=== PATIENT | male | born 1950 | race Caucasian/White ===

== ENCOUNTER 2018-02-11 09:53 | Emergency (ER) | payer OTHER, MEDICARE ==
[~2018-02-11] VITALS: Ht 180.3 cm; Wt 108.9 kg
[~2018-02-11 09:53] MED LIST: ACET-422 PO; ASPI-482 PO; CELE200C PO; CEPH500T PO; COLE1TAB2 PO; DOCU-109 PO; FINA1TAB PO; GLUC1CAP48 PO; IBUP100O25 PO; LISI-130 PO; MAGN200T PO; MAGN400C PO; METH-38 PO; METH4TAB2 PO; MULT-208 PO; OXYC10TA46 PO; OXYC1TAB22 PO; PARO20TA3 PO; POTA500T5 PO; POTA99TA10 PO; PRAV40TA2 PO; PRAV80TA2 PO; TOPI100T8 PO; TOPI25TA7 PO; VITA150T PO; WARF-78 PO
[2018-02-11] MEDS ORDERED: IV NORMAL SALINE 1000ML BAG 1,000 ML IV SCH (10:17)
[2018-02-11] MEDS ORDERED: HYDROmorphone 2 MG/ML VIAL IV/SQ PRN (10:30)
--- NOTE | 2018-02-11 10:33 | PHYS DOC ---
Past Medical History Past Medical History: Other Additional Past Medical Histor: hyperlipidemia Past Surgical History: Hip Replacement, Knee Replacement, Other Additional Past Surgical Histo: hernia repair x2, several back surgeries Smoking: Quit Greater Than 1 Year Alcohol Use: Occasionally Drug Use: None Adult General Chief Complaint Chief Complaint: BACK PAIN OR INJURY TIM DUMONT Is a 67-year-old male who arrives in the emergency department via EMS, For what he reports is middle back pain, but he points to his right lower back as a source of his pain. He states that he fell about a week ago but was not having significant pain, although he was having some intermittent mild discomfort, immediately after that, but this morning after getting off the commode, he began experiencing acute right lower back pain, without radiation. He denies any numbness, weakness, or incontinence. He has not had any fevers or chills. He denies abdominal pain, but does have some generalized abdominal tenderness on exam, which seems to reproduce the patient's back pain, he states because it is causing him to tense up his abdominal and back muscles causing pain. Movement , especially rolling over and flexing his legs, seems to worsen his back pain. There are no alleviating factors to his symptoms. Other than his fall a week ago , he did not have any other traumatic injuries. He denies any chest pain shortness of breath, dizziness or lightheadedness, and has not had any urinary symptoms. Review of Systems Review of Systems Constitutional: Denies fever or chills [] Eyes: Denies change in visual acuity, redness, or eye pain [] HENT: Denies nasal congestion or sore throat [] Respiratory: Denies cough or shortness of breath [] Cardiovascular: The patient denies any shortness of breath, chest pain, palpitations, or orthopnea [] GI: Denies abdominal pain, nausea, vomiting, bloody stools or diarrhea [] : Denies dysuria or hematuria [] Musculoskeletal: Denies neck pain or joint pain [] Integument: Denies rash or skin lesions [] Neurologic: Denies headache, focal weakness or sensory changes [] Endocrine: Denies polyuria or polydipsia [] All other systems were reviewed and found to be within normal limits, except as documented in this note. Current Medications Current Medications Current Medications Medications (Trade) Dose Ordered Sig/Joshua Start Time Stop Time Status Last Admin Dose Admin Diazepam (Valium) 5 mg 1X ONCE 02/11/18 10:45 02/11/18 10:46 DC 02/11/18 10:54 5 MG Hydromorphone HCl (Dilaudid) 1 mg PRN Q15MIN PRN 02/11/18 10:30 02/12/18 10:29 02/11/18 10:48 1 MG Sodium Chloride 1,000 ml @ 100 mls/hr Q10H 02/11/18 10:17 02/11/18 20:16 02/11/18 10:45 100 MLS/HR Allergies Allergies Allergies Coded Allergies Type Severity Reaction Last Updated Verified No Known Drug Allergies 05/05/15 No Physical Exam Physical Exam PHYSICAL EXAM: CONSTITUTIONAL: Well developed, well nourished HEAD: normocephalic, atraumatic EENT: PERRL, EOMI. Conjunctivae normal color, sclerae non-icteric; moist mucous membranes. NECK: Supple, non-tender; no meningismus. LUNGS: Lungs CTA, breathing even and unlabored. Normal air movement. HEART: Regular rate and rhythm, no murmur CHEST: No deformity; there is mild tenderness to palpation at the most inferior aspect of the right lower/posterior costal margin, mostly in the right flank area, the remainder of the chest wall and ribs are non-tender ABDOMEN: The abdomen is soft, there is mild diffuse tenderness to palpation in the center abdomen, without focal tenderness, rebound, or guarding. The upper and lower abdomen are mostly soft and non-tender, no masses or bruits. EXTREM: Normal ROM; no deformity, no calf tenderness. Normal pulses palpable in all extremities. There is no pedal edema. SKIN: No rash; no diaphoresis NEURO: Alert; normal speech and cognition; CN's grossly intact; strength grossly intact without focal deficit. Patellar reflexes are 2+ bilaterally. There is no foot drop. There is no perineal anesthesia. BACK: No CVA TTP. There is tenderness to palpation of the right lower lumbar spine. Current Patient Data Vital Signs Vital Signs Date Time Temp Pulse Resp B/P (MAP) Pulse Ox O2 Delivery O2 Flow Rate FiO2 02/11/18 10:48 15 99 Room Air 02/11/18 10:00 134/69 (90) 99.0 Lab Values Laboratory Tests Test 02/11/18 10:53 02/11/18 12:00 White Blood Count 6.9 x10^3/uL (4.0-11.0) Red Blood Count 4.72 x10^6/uL (4.30-5.70) Hemoglobin 15.1 g/dL (13.0-17.5) Hematocrit 43.2 % (39.0-53.0) Mean Corpuscular Volume 92 fL (79-100) Mean Corpuscular Hemoglobin 32 pg (25-35) Mean Corpuscular Hemoglobin Concent 35 g/dL (31-37) Red Cell Distribution Width 13.2 % (11.5-14.5) Platelet Count 201 x10^3/uL (140-400) Neutrophils (%) (Auto) 80 % (31-73) H Lymphocytes (%) (Auto) 15 % (24-48) L Monocytes (%) (Auto) 4 % (0-9) Eosinophils (%) (Auto) 0 % (0-3) Basophils (%) (Auto) 0 % (0-3) Neutrophils # (Auto) 5.5 x10^3uL (1.8-7.7) Lymphocytes # (Auto) 1.0 x10^3/uL (1.0-4.8) Monocytes # (Auto) 0.3 x10^3/uL (0.0-1.1) Eosinophils # (Auto) 0.0 x10^3/uL (0.0-0.7) Basophils # (Auto) 0.0 x10^3/uL (0.0-0.2) Sodium Level 141 mmol/L (136-145) Potassium Level 3.9 mmol/L (3.5-5.1) Chloride Level 106 mmol/L (98-107) Carbon Dioxide Level 23 mmol/L (21-32) Anion Gap 12 (6-14) Blood Urea Nitrogen 13 mg/dL (8-26) Creatinine 0.9 mg/dL (0.7-1.3) Estimated GFR (Cockcroft-Gault) 84.2 BUN/Creatinine Ratio 14 (6-20) Glucose Level 114 mg/dL (70-99) H Calcium Level 9.1 mg/dL (8.5-10.1) Total Bilirubin 0.3 mg/dL (0.2-1.0) Aspartate Amino Transferase (AST) 35 U/L (15-37) Alanine Aminotransferase (ALT) 48 U/L (16-63) Alkaline Phosphatase 77 U/L (46-116) Total Protein 7.3 g/dL (6.4-8.2) Albumin 3.7 g/dL (3.4-5.0) Albumin/Globulin Ratio 1.0 (1.0-1.7) Lipase 333 U/L (73-393) Urine Collection Type Unknown Urine Color Yellow Urine Clarity Clear Urine pH 7.5 Urine Specific [place] 1.020 Urine Protein Negative mg/dL (NEG-TRACE) Urine Glucose (UA) Negative mg/dL (NEG) Urine Ketones (Stick) Negative mg/dL (NEG) Urine Blood Negative (NEG) Urine Nitrite Negative (NEG) Urine Bilirubin Negative (NEG) Urine Urobilinogen Dipstick 0.2 mg/dL (0.2 mg/dL) Urine Leukocyte Esterase Negative (NEG) Urine RBC 0 /HPF (0-2) Urine WBC 0 /HPF (0-4) Urine Squamous Epithelial Cells Few /LPF Urine Bacteria 0 /HPF (0-FEW) Laboratory Tests 02/11/18 10:53 Laboratory Tests 02/11/18 10:53 EKG EKG [] Radiology/Procedures Radiology/Procedures [PROCEDURE: CT ABDOMEN PELVIS WO CONTRAST CT of the abdomen and pelvis without contrast, 02/11/2018: HISTORY: Fall one week ago, back and right flank pain Noncontrast scans were obtained as requested. There are mild reticular opacities posteriorly in the lung bases suggesting scarring and/or atelectasis. No pleural fluid or pneumothorax is evident. Moderate coronary artery calcifications are present. The unopacified liver shows no abnormality. The gallbladder is unremarkable. No pancreatic abnormality is seen. The spleen is of normal size. There is a 2.5 cm cortical nodule arising from the lateral aspect of the right kidney. It is of higher density than the kidney demonstrate an internal CT number of 57 Hounsfield units. This may be a solid mass or complicated cyst. The unopacified kidneys are otherwise unremarkable. No adrenal abnormality is detected. There is moderate aortoiliac calcific plaquing. No abdominal or pelvic adenopathy is seen. Artifacts arising from a left hip prosthesis degrade image quality in the lower pelvis. The bowel loops are not dilated. No free fluid or free air is evident in the abdomen or pelvis. There has been a previous lower lumbar spinal fusion with instrumentation. Moderate multilevel degenerative changes are present in the spine. There is a nondisplaced fracture of the posterior aspect of the right 11th rib which appears recent. No other recent fracture is evident. IMPRESSION: 1. Recent fracture of the posterior aspect of the right 11th rib. 2. Medium density right renal nodule suggesting a complicated cyst versus a solid renal mass. Nonemergent sonographic evaluation is suggested. 3. No acute intra-abdominal or pelvic abnormality is detected. 4. Additional miscellaneous chronic findings as described above.] PROCEDURE: RIBS RIGHT Right RIBS, 3 views, 02/11/2018: HISTORY: Fall, pain There is a nondisplaced fracture of the posterior aspect of the right 11th rib, better demonstrated on the current CT study. No additional rib abnormality is detected. There is a moderate thoracolumbar scoliosis with moderate multilevel hypertrophic degenerative change. IMPRESSION: Right 11th rib fracture, better demonstrated on the current CT exam. Course & Med Decision Making Course & Med Decision Making Pertinent Labs and Imaging studies reviewed. (See chart for details) [12:40 PM:Patient remains stable. I discussed test results, the need for close follow-up, and return precautions.] Dragon Disclaimer Dragon Disclaimer This electronic medical record was generated, in whole or in part, using a voice recognition dictation system. Departure Departure Impression: Primary Impression: Rib fracture Disposition: 01 HOME, SELF-CARE Condition: STABLE Referrals: DANA OLIVER MD (PCP) Patient Instructions: Incentive Spirometer, Rib Fracture Scripts Lidocaine (Lidocaine) 1 Each Adh..patch 1 EACH TP DAILY PRN for PAIN, #10 PATCH Prov: JOSSE SWIFT MD 02/11/18 Oxycodone/Apap 5-325 (PERCOCET 5-325 MG TABLET ) 1 Each Tablet 1 TAB PO PRN Q6HRS PRN for PAIN, #20 TAB 0 Refills Prov: JOSSE SWIFT MD 02/11/18 JOSSE SWIFT MD Feb 11, 2018 10:33
[2018-02-11] MEDS ORDERED: diazePAM 5 MG TABLET PO ONE (10:45)
[2018-02-11 11:15] LABS: BASO % 0 % (0-3); EOS % 0 % (0-3); HEMATOCRIT 43.2 % (39.0-53.0); HEMOGLOBIN 15.1 g/dL (13.0-17.5); LYMPH % 15 % (24-48); MEAN CORPUSCULAR HEMOGLOBIN 32 pg (25-35); MEAN CORPUSCULAR HGB CONC 35 g/dL (31-37); MEAN CORPUSCULAR VOLUME 92 fL (79-100); MONO # 0.3 x10^3/uL (0.0-1.1); MONO % 4 % (0-9); NEUT # 5.5 x10^3uL (1.8-7.7); NEUT % 80 % (31-73); PLATELET COUNT 201 x10^3/uL (140-400); RED BLOOD COUNT 4.72 x10^6/uL (4.30-5.70); RED CELL DISTRIBUTION WIDTH 13.2 % (11.5-14.5); WHITE BLOOD COUNT 6.9 x10^3/uL (4.0-11.0)
[2018-02-11 11:18] LABS: CALCIUM 9.1 mg/dL (8.5-10.1); CREATININE 0.9 mg/dL (0.7-1.3); GFR 84.2; POTASSIUM 3.9 mmol/L (3.5-5.1)
[2018-02-11 11:20] LABS: ALBUMIN 3.7 g/dL (3.4-5.0); TOTAL BILIRUBIN 0.3 mg/dL (0.2-1.0); TOTAL PROTEIN 7.3 g/dL (6.4-8.2)
--- NOTE | 2018-02-11 11:58 | RAD ---
CT of the abdomen and pelvis without contrast, 02/11/2018: HISTORY: Fall one week ago, back and right flank pain Noncontrast scans were obtained as requested. There are mild reticular opacities posteriorly in the lung bases suggesting scarring and/or atelectasis. No pleural fluid or pneumothorax is evident. Moderate coronary artery calcifications are present. The unopacified liver shows no abnormality. The gallbladder is unremarkable. No pancreatic abnormality is seen. The spleen is of normal size. There is a 2.5 cm cortical nodule arising from the lateral aspect of the right kidney. It is of higher density than the kidney demonstrate an internal CT number of 57 Hounsfield units. This may be a solid mass or complicated cyst. The unopacified kidneys are otherwise unremarkable. No adrenal abnormality is detected. There is moderate aortoiliac calcific plaquing. No abdominal or pelvic adenopathy is seen. Artifacts arising from a left hip prosthesis degrade image quality in the lower pelvis. The bowel loops are not dilated. No free fluid or free air is evident in the abdomen or pelvis. There has been a previous lower lumbar spinal fusion with instrumentation. Moderate multilevel degenerative changes are present in the spine. There is a nondisplaced fracture of the posterior aspect of the right 11th rib which appears recent. No other recent fracture is evident. IMPRESSION: 1. Recent fracture of the posterior aspect of the right 11th rib. 2. Medium density right renal nodule suggesting a complicated cyst versus a solid renal mass. Nonemergent sonographic evaluation is suggested. 3. No acute intra-abdominal or pelvic abnormality is detected. 4. Additional miscellaneous chronic findings as described above. PQRS Compliance Statement: One or more of the following individualized dose reduction techniques were utilized for this examination: 1. Automated exposure control 2. Adjustment of the mA and/or kV according to patient size 3. Use of iterative reconstruction technique Electronically signed by: Issa Mathews MD (02/11/2018 11:55 AM) [facility]
--- NOTE | 2018-02-11 12:01 | RAD ---
Right RIBS, 3 views, 02/11/2018: HISTORY: Fall, pain There is a nondisplaced fracture of the posterior aspect of the right 11th rib, better demonstrated on the current CT study. No additional rib abnormality is detected. There is a moderate thoracolumbar scoliosis with moderate multilevel hypertrophic degenerative change. IMPRESSION: Right 11th rib fracture, better demonstrated on the current CT exam. Electronically signed by: Issa Mathews MD (02/11/2018 11:58 AM) [facility]
[2018-02-11 12:11] LABS: BILIRUBIN,URINE NEGATIVE (NEG); CLARITY,URINE CLEAR; COLOR,URINE YELLOW; NITRITE,URINE NEGATIVE (NEG); PH,URINE 7.5; PROTEIN,URINE NEGATIVE (NEG-TRACE); UROBILINOGEN,URINE 0.2 mg/dL (0.2 mg/dL)
[2018-02-11 12:31] LABS: BACTERIA,URINE 0 /HPF (0-FEW); RBC,URINE 0 /HPF (0-2); SQUAMOUS EPITHELIAL CELL,UR FEW /LPF; WBC,URINE 0 /HPF (0-4)
[2018-02-11] MEDS ORDERED: LIDO700A39 TP (12:41)
[2018-02-11] MEDS ORDERED: OXYC1TAB15 PO (12:41)
[2018-02-11 13:50] VITALS: BP 126/70
[2018-02-11] MEDS ORDERED: HYDROcodone/APAP 5/325MG 1 TAB TABLET ONE (13:55)
[2018-02-11] MEDS ORDERED: HYDROcodone/APAP 5/325MG 1 TAB TABLET PO ONE (14:00)
== END 2018-02-11 14:05 | disposition home or self-care (01) ==
LOC: ER 09:53
DX: S22.31XA Fracture of one rib, right side, initial encounter for closed fracture (principal); M54.5 Low back pain; R10.84 Generalized abdominal pain; E78.5 Hyperlipidemia, unspecified; Z96.649 Presence of unspecified artificial hip joint; Z87.891 Personal history of nicotine dependence; W18.30XA Fall on same level, unspecified, initial encounter; Y93.89 Activity, other specified; Y92.89 Other specified places as the place of occurrence of the external cause; Y99.8 Other external cause status
CPT/HCPCS: 36415; 71100; 74176; 80053; 81001; 83690; 85025; 96374; 99284; J1170; J7030

== ENCOUNTER → 2018-03-14 | Outpatient (CLI) | payer OTHER ==
[~2018-03-14] MED LIST changes: +LIDO700A39 TP; +OXYC1TAB15 PO
--- NOTE | 2018-03-14 17:00 | RAD ---
EXAM: Renal sonogram. HISTORY: Renal mass on CT. TECHNIQUE: Sonographic imaging of the kidneys and bladder was performed. COMPARISON: CT dated 02/11/2018. FINDINGS: The right kidney measures 11.8 cm [id number]. The left kidney measures 11.6 cm [id number]-[id number]. There is a 2.0 cm cyst within the lateral upper right kidney. No solid renal lesion is seen. There is no hydronephrosis. The bladder is unremarkable. The post void bladder volume is 42 cc. IMPRESSION: 2.0 cm right renal cyst. The hyperdensity of this lesion on the recent CT is likely due to internal hemorrhage. No convincing solid renal lesion is seen. Sonographic follow-up can be performed to confirm benignity. Electronically signed by: Arely Leach MD (03/14/2018 4:56 PM) [id number]
== END | disposition home or self-care (01) ==
LOC: US 16:05
PROVIDERS: ATTEND Family Medicine
DX: N28.1 Cyst of kidney, acquired (principal)
CPT/HCPCS: 76770

== ENCOUNTER → 2018-11-14 | Outpatient (CLI) | payer OTHER, MEDICARE ==
[~2018-11-14] MED LIST changes: +LIDO700A21 TP; -LIDO700A39 TP
[2018-11-14 07:31] LABS: BILIRUBIN,URINE NEGATIVE (NEG); CLARITY,URINE CLEAR; COLOR,URINE YELLOW; NITRITE,URINE NEGATIVE (NEG); PH,URINE 7.5; PROTEIN,URINE NEGATIVE (NEG-TRACE); UROBILINOGEN,URINE 0.2 mg/dL (0.2 mg/dL)
[2018-11-14 07:44] LABS: BACTERIA,URINE FEW /HPF (0-FEW); RBC,URINE 0 /HPF (0-2); SQUAMOUS EPITHELIAL CELL,UR OCC /LPF
[2018-11-14 08:00] LABS: ALBUMIN/GLOBULIN RATIO 1.1 (1.0-1.7); CALCIUM 8.9 mg/dL (8.5-10.1); GFR 74.3; TOTAL BILIRUBIN 0.8 mg/dL (0.2-1.0); TOTAL PROTEIN 7.8 g/dL (6.4-8.2)
[2018-11-14 08:01] LABS: CHOLESTEROL/HDL RATIO 4.5
[2018-11-15 01:07] LABS: HEMOGLOBIN A1C 5.5 % (4.8-5.6)
[2018-11-15 12:11] LABS: FECAL OB PT NEGATIVE (NEG)
== END | disposition home or self-care (01) ==
LOC: LAB 07:03
PROVIDERS: ATTEND Family Medicine
DX: Z12.11 Encounter for screening for malignant neoplasm of colon (principal); Z12.5 Encounter for screening for malignant neoplasm of prostate; R73.01 Impaired fasting glucose; E78.5 Hyperlipidemia, unspecified; N40.0 Benign prostatic hyperplasia without lower urinary tract symptoms; I10 Essential (primary) hypertension
CPT/HCPCS: 36415; 80053; 80061; 81001; 82274; 83036; 87086; G0103

== ENCOUNTER → 2019-01-02 | Outpatient (CLI) | payer OTHER, MEDICARE | END | disposition home or self-care (01) | LOC: LAB 07:18 | PROVIDERS: ATTEND Urology | DX: R97.20 Elevated prostate specific antigen [PSA] (principal) | CPT/HCPCS: 36415; G0103 ==

== ENCOUNTER → 2019-05-20 | Outpatient (CLI) | payer OTHER, MEDICARE ==
--- NOTE | 2019-05-20 16:57 | KCIC ---
RENAL COMPLETE BILATERAL History: Right renal lesion. Comparison: March 14, [address] February 11, 2018 Procedure: Transabdominal ultrasound images are obtained of the kidneys and bladder. Findings: Right kidney: measures 11.8 x 5.9 x 6.3 cm. No hydronephrosis. Right renal cyst measures 2.1 x 2.4 x 1.8 cm, not significant changed compared to prior. Left kidney: measures 12 x 5.6 x 5.5 cm. Normal cortical echotexture. Corticomedullary differentiation is preserved. No hydronephrosis. Urinary bladder: No urinary bladder wall thickening. IVC not well seen due to overlying bowel gas. IMPRESSION: 1. Unchanged right renal Bosniak 2 cyst. No follow-up imaging is recommended per consensus recommendations based on imaging criteria. Electronically signed by: Chet Amos DO (05/20/2019 4:54 PM) [id number]
== END | disposition home or self-care (01) ==
LOC: KCIC US 13:09
PROVIDERS: ATTEND Family Medicine
DX: N28.1 Cyst of kidney, acquired (principal)
CPT/HCPCS: 76770

== ENCOUNTER → 2019-07-11 | Outpatient (CLI) | payer OTHER, MEDICARE | END | disposition home or self-care (01) | LOC: LAB 08:48 | PROVIDERS: ATTEND Urology | DX: R97.20 Elevated prostate specific antigen [PSA] (principal) | CPT/HCPCS: 36415; 84153; G0103 ==

== ENCOUNTER → 2019-10-02 | Outpatient (CLI) | payer OTHER, MEDICARE ==
[~2019-10-02] MED LIST changes: -WARF-78 PO; +WARF5TAB2 PO
[2019-10-02 08:12] LABS: ALBUMIN 4.1 g/dL (3.4-5.0); ALBUMIN/GLOBULIN RATIO 1.1 (1.0-1.7); CALCIUM 8.9 mg/dL (8.5-10.1); CREATININE 1.1 mg/dL (0.7-1.3); GFR 66.6; POTASSIUM 3.8 mmol/L (3.5-5.1); TOTAL BILIRUBIN 0.4 mg/dL (0.2-1.0); TOTAL PROTEIN 7.9 g/dL (6.4-8.2)
[2019-10-02 08:13] LABS: CHOLESTEROL/HDL RATIO 4.1
== END | disposition home or self-care (01) ==
LOC: LAB 07:30
PROVIDERS: ATTEND Family Medicine
DX: R73.01 Impaired fasting glucose (principal); R97.20 Elevated prostate specific antigen [PSA]; I10 Essential (primary) hypertension
CPT/HCPCS: 36415; 80053; 80061; G0103

== ENCOUNTER → 2019-10-02 | Outpatient (CLI) | payer OTHER | END | disposition home or self-care (01) | LOC: LAB 12:41 | PROVIDERS: ATTEND Internal Medicine Pulmonary Disease | DX: Z20.828 Contact with and (suspected) exposure to other viral communicable diseases (principal) | CPT/HCPCS: U0003-CS ==

== ENCOUNTER → 2020-04-16 | Outpatient (CLI) | payer OTHER ==
[~2020-04-16] MED LIST changes: +ASPI325T11 PO; +DICY20TA3 PO; +GLUC-11 PO; +HYDR-2765 PO; +HYDR-2769 PO; +IBUP-1815 PO; -IBUP100O25 PO; +LORA10TA3 PO; +OXYC1TAB17 PO
--- NOTE | 2020-04-16 16:56 | RAD ---
NM THREE PHASE BONE SCAN Clinical Indication: Right knee pain. Total knee replacement 2014. Comparison: Right knee radiographs, 3 days ago. TECHNIQUE: Patient is injected with 25 mCi of technetium 99m MDP. Anterior and posterior angiographic phase images of the knees acquired. Then anterior immediate static images acquired. Delayed images o f the knees in multiple projections acquired. Findings: On angiographic phase images is there is hyperemia outlining the right knee joint. There is intense t racer uptake outlining the knee joint on the immediate static (blood pool) image. On delay images the re is abnormal increased tracer uptake of the distal femur and proximal tibia adjacent to the prosthe sis. There is increased tracer uptake of the patella. No abnormal uptake of the left knee is apprecia fei. IMPRESSION: The right knee demonstrates abnormal increased tracer uptake on all 3 phases suggesting loosening. Electronically signed by: Oneil Daniels MD (04/16/2020 4:54 PM) [id number]
== END ==
LOC: NM 07:59
PROVIDERS: ATTEND Orthopaedic Surgery
DX: M25.561 Pain in right knee (principal); R68.89 Other general symptoms and signs; Z96.651 Presence of right artificial knee joint
CPT/HCPCS: 78315; A9503

== ENCOUNTER → 2020-04-27 | Outpatient (CLI) | payer OTHER ==
[~2020-04-27] MED LIST changes: -ASPI325T11 PO; -HYDR-2769 PO; -IBUP-1815 PO; +IBUP100O25 PO; -OXYC1TAB17 PO
[2020-04-27 13:32] LABS: BASO # 0.1 x10^3/uL (0.0-0.2); BASO % 1 % (0-3); EOS # 0.1 x10^3/uL (0.0-0.7); EOS % 3 % (0-3); HEMATOCRIT 42.8 % (39.0-53.0); HEMOGLOBIN 14.9 g/dL (13.0-17.5); LYMPH # 1.7 x10^3/uL (1.0-4.8); LYMPH % 35 % (24-48); MEAN CORPUSCULAR HEMOGLOBIN 32 pg (25-35); MEAN CORPUSCULAR HGB CONC 35 g/dL (31-37); MEAN CORPUSCULAR VOLUME 91 fL (79-100); MONO # 0.3 x10^3/uL (0.0-1.1); MONO % 7 % (0-9); NEUT # 2.7 x10^3/uL (1.8-7.7); NEUT % 54 % (31-73); PLATELET COUNT 208 x10^3/uL (140-400); RED BLOOD COUNT 4.73 x10^6/uL (4.30-5.70); RED CELL DISTRIBUTION WIDTH 13.1 % (11.5-14.5)
--- NOTE | 2020-04-27 13:41 | EKG ---
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
[2020-04-27 13:48] LABS: ALBUMIN 3.9 g/dL (3.4-5.0); GFR 74.1; POTASSIUM 3.9 mmol/L (3.5-5.1)
--- NOTE | 2020-04-27 16:07 | RAD ---
XR CHEST 2V INDICATION: right knee replacement 05/30 COMPARISON STUDY: None. FINDINGS: Lungs: Normal lung volume. No pulmonary mass or consolidation. The tracheobronchial tree and hilar st ructures are normal. Pleura: No pleural effusion or pneumothorax. Heart and Mediastinum: The cardiomediastinal silhouette is normal. The great vessels of the thorax ar e normal. Bones and Soft Tissues: Degenerative changes of the spine. IMPRESSION: No acute cardiopulmonary process. Electronically signed by: Vick Toscano MD (04/27/2020 4:04 PM) [id number]
[2020-04-28 01:09] LABS: HEMOGLOBIN A1C 5.6 % (4.8-5.6)
== END ==
LOC: SURGPAT 12:46
PROVIDERS: ATTEND Orthopaedic Surgery
DX: Z01.818 Encounter for other preprocedural examination (principal); M47.814 Spondylosis without myelopathy or radiculopathy, thoracic region; T84.498A Other mechanical complication of other internal orthopedic devices, implants and grafts, initial encounter; Y83.1 Surgical operation with implant of artificial internal device as the cause of abnormal reaction of the patient, or of later complication, without mention of misadventure at the time of the procedure; Y92.89 Other specified places as the place of occurrence of the external cause
CPT/HCPCS: 36415; 71046; 80048; 82040; 82306; 83036; 85025; 85610; 86140; 87641; 93005

== ENCOUNTER → 2020-05-14 | Outpatient (CLI) | payer OTHER | LOC: LAB 11:30 | PROVIDERS: ATTEND Orthopaedic Surgery | DX: Z01.812 Encounter for preprocedural laboratory examination (principal); T84.498A Other mechanical complication of other internal orthopedic devices, implants and grafts, initial encounter; Y83.8 Other surgical procedures as the cause of abnormal reaction of the patient, or of later complication, without mention of misadventure at the time of the procedure; Y92.89 Other specified places as the place of occurrence of the external cause; Z20.822 Contact with and (suspected) exposure to COVID-19 | CPT/HCPCS: U0003 ==

== ENCOUNTER 2020-05-17 06:08 | Observation (INO) | payer OTHER ==
[2020-05-17] VITALS (8 sets, daily range): BP systolic 110–141; BP diastolic 59–78
[~2020-05-17] VITALS: Ht 175.3 cm; Wt 109.3 kg
[~2020-05-17 06:08] MED LIST changes: +ACETAMINOPHEN 500 MG TABLET PO PRN; +CELECOXIB 100 MG CAPSULE. PO PRN; +GABAPENTIN 300 MG CAPSULE. PO PRN; +IV RINGERS,LACTATED 1000ML 1,000 ML IV SCH; +LIDOCAINE 2% PF 5 ML VIAL. ONE; +PROCHLORPERAZINE 10 MG/2 ML VIAL. IVP PRN; +PROPOFOL 10 MG/ML (20ML) VIAL. IV ONE; +TRANEXAMIC ACID 1,000 MG in IV NS 50ML -- 1ST BAG INJ ONE; +TV=100ml MORPHINE 5 MG, KETOROLAC 30 MG, ROPIVacaine 0.5% PF 60 ML, EPINEPH... INT ART ONE; +fentaNYL PF VIAL 100 MCG/2 ML VIAL IVP PRN
[2020-05-17] MEDS ORDERED: TOBRAMYCIN POWDER 1.2 GM VIAL. ONE (06:46)
[2020-05-17] MEDS ORDERED: VANCOMYCIN 1 GM VIAL. ONE ×2 (06:46→06:47)
[2020-05-17] MEDS ORDERED: ONDANSETRON PF 4 MG/2 ML VIAL. ONE (06:56)
[2020-05-17] MEDS ORDERED: DEXAMETHASONE SOD PHOS 4 MG/ML VIAL ONE (06:56)
[2020-05-17] MEDS ORDERED: fentaNYL PF VIAL 100 MCG/2 ML VIAL ONE (07:39)
[2020-05-17] MEDS ORDERED: TRANEXAMIC ACID in NS IVPB 50 ML ONE (07:43)
[2020-05-17] MEDS ORDERED: TRANEXAMIC ACID 1,000 MG in IV NS 50ML -- 2ND BAG INJ ONE (08:00)
[2020-05-17] MEDS ORDERED: SEVOFLURANE 61 TO 120 MINUTES. IH ONE (08:30)
--- NOTE | 2020-05-17 09:16 | PDOC4 ---
Operative Note Operative Note Date of Procedure: May 17, 2020 Pre-Op Diagnosis: 1. Presence of right artificial knee joint - Z96.651 2. Right knee pain, unspecified chronicity - M25.561 Post-Op Diagnosis: 1. Presence of right artificial knee joint - Z96.651 2. Right knee pain, unspecified chronicity - M25.561 Procedure: Revision left total knee arthroplasty, (one component) patella resurfacing revision Surgeon: Rai Payan MD Certified Medication Technician: BRANDI Thayer Anesthesia: General EBL: 75 mL Specimens Obtained: Right knee bone and soft tissue, and patellar prosthesis Complications: None Drains: None Tourniquet: 35 minutes at 300 mm Hg Implants: Nova [employer] Nephew 35 mm oval Karin II resurfacing patellar component Findings: No evidence of infection. 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 The femoral component, tibial component and polyethylene components appear normal without signs of loosening or wear. There is minimal coronal plane instability on careful stress testing intraoperatively, perhaps 1 mm in each direction. I did not feel that tibiofemoral polyethylene revision was warranted. Indications for Procedure: 69-year-old new patient here with right knee pain 7 years out from right total knee arthroplasty. Dr. Fletcher replaced his knee about 7 years ago. He describes pain and swelling in his knee, located anteriorly "in the joint" and in the thigh, worse with walking and with activity. Denies any coronal instability although " I have pain with every step". It seems like his symptoms are primarily related to the patellofemoral joint. X-rays show an inset patella, with some residual bone contacting the femoral prosthesis laterally. A bone scan also indicates dramatic uptake in the patella, minimal uptake in the femur and tibia. In the office I thought there was some subtle coronal plane instability and plans to have the robotic assistance available for possible polyethylene revision. I offered him revision surgery, including changing the type of resurfacing of the patella and possible tibial polyethylene revision. The patient and I discussed the risks, benefits and alternatives of surgery. We discussed the potential risks of infection, neurovascular injury, bleeding, blood clots, need for revision surgery, or other potential surgical or anesthetic complications. All of his questions about surgery were answered and h e desires to proceed. Procedure in Detail: The patient was identified in the preoperative holding area. The correct left lower gravity was marked by me. The patient was taken to the operating room where general anesthesia was used. The patient was posi tioned supine on the operating table. Preoperative antibiotics were given intravenously. A timeout procedure was performed. A tourniquet was applied to the upper limb. The limb was prepared in sterile fashion with surgical prep solution. Sterile drapes were applied. An impervious stockinette and Ioban drape were used such that the skin was entirely covered. Tranexamic acid was g iven intravenously. The operating team wore the [email or web address] personal exhaust ventilated hoods. An Esmarch bandage was used to examine the limb. The tourniquet was inflated to 300 mmHg. The previous midline incision was used. Sharp dissection was used and Bovie electrocautery was used for hemostasis. A medial parapatellar arthrotomy was performed. There was benign synovial fluid. The patella was everted, and had quite a bit of scar tissue and synovitis. The patellar component was stable without apparent loosening the surrounding bone shows deep bone erosion, eburnated bone of the lateral patellar facet. There is extensive synovitis in the lateral compartment that was resected. There is even a lateral femoral osteophyte, just lateral to the prosthesis which looks like it has likely regrown since the original surgery, and is probably related to the irritation and osteoarthritis type inflammation which is still occurring at the lateral patellar joint. I resected the surrounding synovium to better visualize the patella. I measured the thickness with a caliper. I recut the patella, cutting off the prior patellar polyethylene, and cutting the patella in a flat fashion rather than the inset used before. The caliper was used for measurements, to confirm 14 mm thickness throughout. Sizing was performed, and then an oval 3 pegged patella component was planned. Next the tibiofemoral articulation was examined. The cemented femoral and tibial components are well fixed, without evidence of loosening. I did careful stress testing and visualized and palpated the coronal plane stability. There is perhaps 1 mm of gapping with firm stress, sometimes medial, sometimes lateral, depending on the amount of flexion. I did not feel that proceeding with revision of the polyethylene was warranted based on these minimal findings. I am not sure that I could improve that stability, and there certainly risks of the extensive additional surgery. I had the robotic equipment ready to perform that procedure if necessary but the robot was never used. I then used the trial for the patella, and confirmed good patellar tracking with no contact of the remaining patellar bone with the femoral implant. The Dougherty interpulse agricultural research technician was used and copious saline irrigation was used. Betadine lavage was used followed by final saline irrigation. The agricultural research technician was used on the patella thorougly, and then the patella was dried carefully with suction and laparotomy sponges. One package (40 g) of Nova and Nephew Rally HV bone cement was mixed with visually divided half doses of 1.2 gms Tobramycin and 1 gm of Vancomycin, and vacuum mixing was performed. The final polyethylene 35 mm oval patella was secured to the remaining patellar bone, and held with a bone clamp while the cement hardened. Excess cement was removed. The tourniquet was released. Additional tranexamic acid was given intravenously. Bovie electrocautery was used for hemostasis. After the cement hardened at 10 minutes the clamp was removed. Final patellar tracking and stability of the knee were confirmed. The knee was irrigated a final time and then closed in layers. One gram of powdered vancomycin was placed into the knee joint and subcutaneous layer. The arthrotomy was closed with #1 Vicryl [id number] sutures. My medical laboratory assistant then closed the subcutaneous tissues with #2-0 Vicryl. My medical laboratory assistant reapproximated the skin layer with #3-0 STRATAFIX Monocryl. Acticoat and a MARIKA dressing were applied. Needle and sponge counts were correct. There were no apparent complications. RAI PAYAN MD May 17, 2020 09:16
[2020-05-17] MEDS ORDERED: oxyCODONE/APAP 5/325 1 TAB TABLET PO PRN (09:30)
[2020-05-17] MEDS ORDERED: DEXTROSE 50% 25 GM / 50ML DISP.SYRIN. IV PRN (09:30)
[2020-05-17] MEDS ORDERED: CALCIUM CARBONATE 500 MG TAB.CHEW PO PRN (09:30)
[2020-05-17] MEDS ORDERED: PROCHLORPERAZINE 5 MG TABLET. PO PRN (09:30)
[2020-05-17] MEDS ORDERED: MORPHINE SULFATE 4 MG/ML VIAL. IVP PRN (09:30)
[2020-05-17] MEDS ORDERED: METOCLOPRAMIDE HCL 10 MG/2 ML VIAL. IVP PRN (09:30)
[2020-05-17] MEDS ORDERED: 0.9 % SODIUM CHLORIDE 10 ML DISP.SYRIN. IV PRN (09:30)
[2020-05-17] MEDS ORDERED: diphenhydrAMINE 50 MG/ML VIAL IVP PRN (09:30)
[2020-05-17] MEDS ORDERED: fentaNYL PF VIAL 100 MCG/2 ML VIAL IVP PRN (09:30)
[2020-05-17] MEDS ORDERED: MORPHINE SULFATE 2 MG/ML VIAL. ONE (09:39)
[2020-05-17] MEDS: MORPHINE SULFATE 2 MG/ML VIAL. IVP PRN ×2 (09:43→09:55)
[2020-05-17] MEDS ORDERED: HYDROmorphone 2 MG/ML VIAL ONE (09:57)
[2020-05-17] MEDS: HYDROmorphone 2 MG/ML VIAL IVP PRN ×4 (10:01→10:23)
--- NOTE | 2020-05-17 10:21 | RAD ---
EXAM: Right knee, 2 views. HISTORY: Arthroplasty. COMPARISON: None. FINDINGS: 2 views of the right knee are obtained. There is a right knee arthroplasty in expected posi tion. There is soft tissue gas and joint fluid due to recent surgery. IMPRESSION: Right knee arthroplasty in expected position. Electronically signed by: Arely Leach MD (05/17/2020 10:19 AM) [id number]
--- NOTE | 2020-05-17 11:09 | NUR ---
Received from recovery. He is alert. is at bedside. He is rating his pain a "5".He states that he is comfortable. He has good motion, sensation and pulses bilateral lower extremities.
[2020-05-17] MEDS: ONDANSETRON ODT 4 MG TAB.RAPDIS. PO SCH ×2 (12:00→17:01)
[2020-05-17] MEDS: ONDANSETRON PF 4 MG/2 ML VIAL. IVP SCH ×2 (12:14→17:04)
[2020-05-17] MEDS: DICYCLOMINE HCL 10 MG CAPSULE PO SCH ×3 (12:24→21:16)
--- NOTE | 2020-05-17 14:54 | NUR ---
ambulated to the bathroom with PT; became lightheadedness and was able to ambulate to the recliner. reinforced the need to call for assistance and not to get up by themselves. verbalized understanding. He voided 200 cc. He is rating his pain a "5"
[2020-05-17] MEDS: IV NORMAL SALINE 1000ML BAG 1,000 ML IV SCH (19:17)
[2020-05-17] MEDS ORDERED: NON FORMULARY ITEM (Potassium Gluconate 500 MG) PO SCH (21:00)
[2020-05-17] MEDS: ASPIRIN ENTERIC COATED 325 MG TABLET.DR. PO SCH (21:16)
[2020-05-17] MEDS: ZOLPIDEM 5 MG TABLET. PO PRN (21:16)
[2020-05-17] MEDS: ATORVASTATIN CALCIUM 10 MG TABLET. PO SCH (21:17)
[2020-05-17] MEDS: MAGNESIUM OXIDE 400 MG TABLET PO SCH (21:17)
[2020-05-17] MEDS: TOPIRAMATE 25 MG TABLET. PO SCH (21:17)
[2020-05-17] MEDS: oxyCODONE/APAP 5/325 1 TAB TABLET PO PRN (21:24)
[2020-05-18 03:00] VITALS: BP 110/59
[2020-05-18] MEDS: ONDANSETRON PF 4 MG/2 ML VIAL. IVP SCH ×2 (06:00)
[2020-05-18] MEDS: ONDANSETRON ODT 4 MG TAB.RAPDIS. PO SCH ×2 (06:00)
[2020-05-18] MEDS ORDERED: MAGNESIUM HYDROXIDE 2,400 MG/30 ML ORAL.SUSP. PO PRN (06:00)
[2020-05-18] MEDS: oxyCODONE/APAP 5/325 1 TAB TABLET PO PRN ×2 (06:35→10:43)
[2020-05-18 06:41] VITALS: BP 107/59
[2020-05-18] MEDS: IV NORMAL SALINE 1000ML BAG 1,000 ML IV SCH (07:14)
[2020-05-18] MEDS ORDERED: HYDROcodone/APAP 7.5/325MG 1 TAB TABLET PO PRN (07:45)
[2020-05-18] MEDS: MULTIVITAMIN with MINERAL TABLET. PO SCH (07:45)
[2020-05-18] MEDS: DICYCLOMINE HCL 10 MG CAPSULE PO SCH ×4 (07:45→20:51)
[2020-05-18] MEDS: ASPIRIN ENTERIC COATED 325 MG TABLET.DR. PO SCH ×2 (07:45→20:51)
[2020-05-18] MEDS: CETIRIZINE HCL 10 MG TABLET. PO SCH (07:46)
[2020-05-18] MEDS: SENNOSIDES/DOCUSATE 8.6/50MG TABLET. PO SCH (07:46)
[2020-05-18] MEDS: PARoxetine 20 MG TABLET PO SCH (07:46)
[2020-05-18] MEDS: TOPIRAMATE 25 MG TABLET. PO SCH ×2 (07:46→20:50)
[2020-05-18] MEDS: CELECOXIB 100 MG CAPSULE. PO SCH (07:46)
[2020-05-18] MEDS: MAGNESIUM OXIDE 400 MG TABLET PO SCH ×2 (07:46→20:51)
[2020-05-18] MEDS: COLESTIPOL HCL 1 GM TABLET PO SCH (09:40)
--- NOTE | 2020-05-18 09:50 | NUR ---
Patient is having increased pain this morning that he states the percocet "didnt touch". He was taking lortab prior to his admission to the hospital so it was restarted per Dr Payan. He states his pain is "much better". Will continue to monitor.
[2020-05-18] MEDS ORDERED: ONDANSETRON ODT 4 MG TAB.RAPDIS. PO PRN (12:00)
[2020-05-18] MEDS ORDERED: ONDANSETRON PF 4 MG/2 ML VIAL. IVP PRN (12:00)
--- NOTE | 2020-05-18 13:03 | PDOC ---
PROGRESS NOTES Date of Service DATE: 05/18/20 TIME: 13:02 Subjective Subjective Doing well, but still requiring IV pain meds for pain, in addition to oral meds. Objective Vital Signs Vital Signs Date Time Temp Pulse Resp B/P (MAP) Pulse Ox O2 Delivery O2 Flow Rate FiO2 05/18/20 11:39 95 Room Air 05/18/20 06:41 97.3 65 20 107/59 (75) 97.3 05/17/20 09:34 8 Physical Exam MARIKA dressing working. MARIKA has spots of bloody drainage. Calf soft and NT. Homans neg. Able to DF and plantarflex foot with no evidence of neurovascular injury nor compartment syndrome. No blisters. Minimal erythema. Moderate swelling as expected. Imaging Postop x-rays and report reviewed by me. Satisfactory TKA revision without apparent complications. PATIENT: FAYE VALIENTE ACCOUNT: [id number] : 1950 LOCATION: [address] [place] [address] AGE: 69 SEX: M EXAM STATUS: ADM IN ORD. PHYSICIAN: RAI WU MD REASON: POST OP PROCEDURE: KNEE RIGHT 2V EXAM: Right knee, 2 views. HISTORY: Arthroplasty. COMPARISON: None. FINDINGS: 2 views of the right knee are obtained. There is a right knee arthroplasty in expected position. There is soft tissue gas and joint fluid due to recent surgery. IMPRESSION: Right knee arthroplasty in expected position. Electronically signed by: Arely Leach MD (05/17/2020 10:19 AM) [id number] DICTATED and SIGNED BY: ARELY LEACH MD DATE: 05/17/20 [id number] 0 Assessment Assessment POD 1 after TKA Plan Plan of Care Needs to stay in hospital for pain control at this time. Continue DVT prophylaxis and PT. Discharge planning. Justicifation of Admission Dx: Justifications for Admission: Justification of Admission Dx: Yes RAI WU MD May 18, 2020 13:03
[2020-05-18] MEDS: HYDROcodone/APAP 10/325 1 TAB TABLET PO PRN ×3 (14:19→22:03)
[2020-05-18] MEDS ORDERED: BISACODYL 10 MG SUPP.RECT. PR PRN (16:00)
[2020-05-18 18:14] VITALS: BP 111/59
[2020-05-18] MEDS: ATORVASTATIN CALCIUM 10 MG TABLET. PO SCH (20:50)
[2020-05-18] MEDS: ZOLPIDEM 5 MG TABLET. PO PRN (20:51)
[2020-05-19 06:23] VITALS: BP 117/71
--- NOTE | 2020-05-19 07:28 | NUR ---
Slept well all noc. Percocet given po. MARIKA dressing needs changed, discussed w/ day shift.
[2020-05-19] MEDS: ASPIRIN ENTERIC COATED 325 MG TABLET.DR. PO SCH ×2 (08:38→20:42)
[2020-05-19] MEDS: PARoxetine 20 MG TABLET PO SCH (08:39)
[2020-05-19] MEDS: SENNOSIDES/DOCUSATE 8.6/50MG TABLET. PO SCH (08:39)
[2020-05-19] MEDS: CETIRIZINE HCL 10 MG TABLET. PO SCH (08:39)
[2020-05-19] MEDS: TOPIRAMATE 25 MG TABLET. PO SCH ×2 (08:39→20:41)
[2020-05-19] MEDS: DICYCLOMINE HCL 10 MG CAPSULE PO SCH ×3 (08:39→20:42)
[2020-05-19] MEDS: MAGNESIUM OXIDE 400 MG TABLET PO SCH ×2 (08:39→20:41)
[2020-05-19] MEDS: MULTIVITAMIN with MINERAL TABLET. PO SCH (08:39)
[2020-05-19] MEDS: CELECOXIB 100 MG CAPSULE. PO SCH (08:39)
[2020-05-19] MEDS: HYDROcodone/APAP 10/325 1 TAB TABLET PO PRN ×3 (08:45→20:49)
[2020-05-19] MEDS ORDERED: POLYETHYLENE GLYCOL 3350 17 GM PACKET. PO PRN (09:00)
[2020-05-19 12:09] LABS: HEMOGLOBIN 13.1 g/dL (13.0-17.5)
[2020-05-19 13:16] VITALS: BP 111/66
[2020-05-19] MEDS: COLESTIPOL HCL 1 GM TABLET PO SCH (14:32)
[2020-05-19 18:25] VITALS: BP 125/65
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
[2020-05-19] MEDS: ATORVASTATIN CALCIUM 10 MG TABLET. PO SCH (20:41)
[2020-05-19] MEDS: ZOLPIDEM 5 MG TABLET. PO PRN (20:49)
[2020-05-19] MEDS: IV NORMAL SALINE 1000ML BAG 1,000 ML IV SCH (22:40)
[2020-05-20 06:00] VITALS: BP 123/70
[2020-05-20] MEDS: MAGNESIUM OXIDE 400 MG TABLET PO SCH (08:16)
[2020-05-20] MEDS: MULTIVITAMIN with MINERAL TABLET. PO SCH (08:17)
[2020-05-20] MEDS: TOPIRAMATE 25 MG TABLET. PO SCH (08:17)
[2020-05-20] MEDS: CELECOXIB 100 MG CAPSULE. PO SCH (08:17)
[2020-05-20] MEDS: CETIRIZINE HCL 10 MG TABLET. PO SCH (08:17)
[2020-05-20] MEDS: ASPIRIN ENTERIC COATED 325 MG TABLET.DR. PO SCH (08:17)
[2020-05-20] MEDS: DICYCLOMINE HCL 10 MG CAPSULE PO SCH ×3 (08:17→16:47)
[2020-05-20] MEDS: PARoxetine 20 MG TABLET PO SCH (08:17)
[2020-05-20] MEDS: IV NORMAL SALINE 1000ML BAG 1,000 ML IV SCH (08:23)
[2020-05-20] MEDS: SENNOSIDES/DOCUSATE 8.6/50MG TABLET. PO SCH (08:23)
[2020-05-20] MEDS: HYDROcodone/APAP 10/325 1 TAB TABLET PO PRN ×3 (08:23→16:48)
[2020-05-20] MEDS: COLESTIPOL HCL 1 GM TABLET PO SCH (10:21)
[2020-05-20 10:42] LABS: HEMATOCRIT 39.7 % (39.0-53.0); HEMOGLOBIN 13.4 g/dL (13.0-17.5)
--- NOTE | 2020-05-20 13:06 | PDOC ---
PROGRESS NOTES Date of Service DATE: 05/20/20 TIME: 13:04 Subjective Subjective Doing better today. Dressing changed and bleeding stopped. Objective Vital Signs Vital Signs Date Time Temp Pulse Resp B/P (MAP) Pulse Ox O2 Delivery O2 Flow Rate FiO2 05/20/20 12:54 Room Air 05/20/20 09:23 16 05/20/20 08:23 98 05/20/20 06:00 98.3 75 123/70 (87) 98.3 05/17/20 09:34 8 Physical Exam Dressing removed and incision examined. Steri-Strips intact now. Bleeding has stopped. No blisters. Trace erythema, consistent with recent surgery. No concerning findings. No dehiscence. Labs Laboratory Tests Test 05/19/20 11:55 05/20/20 10:25 Hemoglobin 13.1 g/dL (13.0-17.5) 13.4 g/dL (13.0-17.5) Hematocrit 39.0 % (39.0-53.0) 39.7 % (39.0-53.0) Mean Corpuscular Hemoglobin Concent 34 g/dL (31-37) 34 g/dL (31-37) Laboratory Tests Test 05/20/20 10:25 Hemoglobin 13.4 g/dL (13.0-17.5) Hematocrit 39.7 % (39.0-53.0) Mean Corpuscular Hemoglobin Concent 34 g/dL (31-37) Assessment Assessment POD# 3 after total knee revision. Plan Plan of Care Discharge home today. I think we can switch back to a MARIKA dressing. Office follow-up in 1 to 2 weeks. Aspirin twice a day for DVT prophylaxis. Outpatient physical therapy. Justicifation of Admission Dx: Justifications for Admission: Justification of Admission Dx: N/A RAI WU MD May 20, 2020 13:06
[2020-05-20] MEDS ORDERED: HYDR-2769 PO (13:11)
--- NOTE | 2020-05-20 13:11 | PDOC3 ---
Discharge Summary Visit Information Date of Admission: May 17, 2020 Date of Discharge: May 20, 2020 Final Diagnosis Problems Diagnosis Code T84.092A Other mechanical complication of internal right knee prosthesis, initial encounter Chronic knee pain after total replacement of right knee joint Brief Hospital Course Allergies Allergies Coded Allergies Type Severity Reaction Last Updated Verified niacin Allergy Intermediate 05/17/20 Yes Vital Signs Vital Signs Date Time Temp Pulse Resp B/P (MAP) Pulse Ox O2 Delivery O2 Flow Rate FiO2 05/20/20 12:54 Room Air 05/20/20 09:23 16 05/20/20 08:23 98 05/20/20 06:00 98.3 75 123/70 (87) 98.3 Lab Results Laboratory Tests Test 05/19/20 11:55 05/20/20 10:25 Hemoglobin 13.1 g/dL (13.0-17.5) 13.4 g/dL (13.0-17.5) Hematocrit 39.0 % (39.0-53.0) 39.7 % (39.0-53.0) Mean Corpuscular Hemoglobin Concent 34 g/dL (31-37) 34 g/dL (31-37) Laboratory Tests Test 05/20/20 10:25 Hemoglobin 13.4 g/dL (13.0-17.5) Hematocrit 39.7 % (39.0-53.0) Mean Corpuscular Hemoglobin Concent 34 g/dL (31-37) Brief Hospital Course 69-year-old man with a painful right total knee arthroplasty. 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 The patient underwent total knee arthroplasty revision of the patellar component under general anesthesia the day of admission. Perioperative antibiotics and DVT prophylaxis were used. Postoperatively physical therapy and case management were consulted. The patient progressed and is stable for discharge. Discharge Information Condition at Discharge: Stable Follow Up: Weeks Disposition/Orders: D/C to Home Scheduled Colestipol Hcl (Colestipol Hcl), 2 GM PO DAILY, (Reported) Dicyclomine Hcl (Dicyclomine Hcl), 20 MG PO QID, (Reported) Finasteride (Propecia), 1 MG PO WEEKLY, (Reported) Glucosamine Hcl/Chondr Gloria A Na (Cidaflex Tablet), 1 EACH PO QID, (Reported) Loratadine (Loratadine), 10 MG PO DAILY, (Reported) Magnesium Oxide (Magnesium), 400 MG PO BID, (Reported) Multivitamin (Multi-Day Vitamins), 1 TAB PO DAILY, (Reported) Paroxetine Hcl (Paroxetine Hcl), 20 MG PO DAILY, (Reported) Potassium Gluconate (Potassium Gluconate), 500 MG PO BID, (Reported) Pravastatin Sodium (Pravastatin Sodium), 20 MG PO HS, (Reported) Topiramate (Topiramate), 50 MG PO BID, (Reported) Vitamin B Complex & Vit C No.4 (Super B Complex), 150 MG PO DAILY, (Reported) Scheduled PRN Hydrocodone Bit/Acetaminophen (Hydrocodone-Apap 7.5-325 ), 1 TAB PO PRN Q6HRS PRN for PAIN, (Reported) Patient Instructions Patient Instructions Continue to weight bearing as tolerated with walker. Keep MARIKA dressing intact and dry. Cut off MARIKA "tail" and throw away battery pack on the 7th day after surgery. Tape down MARIKA tail Leave MARIKA dressing intact otherwise. Follow up with Dr. Payan's office as scheduled. Call for appointment unless already scheduled. Continue enteric coated aspirin 325 mg by mouth twice a day for 30 days to prevent blood clots. Justicifation of Admission Dx: Justifications for Admission: Justification of Admission Dx: N/A RAI PAYAN MD May 20, 2020 13:11
[2020-05-20] MEDS ORDERED: ASPI325T11 PO (13:12)
--- NOTE | 2020-05-20 17:40 | NUR ---
Patient DC home in stable condition with belongings per wheelchair accompanied by . DC instructions, incision care, medications and follow up instructions reviewed. Patient denies questions.
--- NOTE | 2020-05-21 09:08 | PATHOLOGY ---
[facility] Accession Number: [id number] . 01 Material submitted: . knee - BONE AND SOFT TISSUE PATELLA IMPLANT, RT KNEE. Modifiers: right . 01 Clinical history: . RIGHT KNEE PAIN . 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 - Patella implant (gross only). . (JPM:mm; 05/20/2020) [facility] 05/20/2020 1635 Local . 02 Electronically signed: . Seamus Faust MD, Pathologist NPI- [id number] . 01 Gross description: . The specimen is received in formalin, labeled "Chente Kaplan, bone and soft tissue, patella implant". The site is further designated on the requisition as, "right knee". Received are several segments of bone admixed with soft tissue measuring 10.9 x 7.2 x 2.0 cm in aggregate dimensions. The specimen is submitted representatively in cassette A1, following decalcification. . Also received within the specimen container is a segment of white plastic, consistent with patella implant, measuring 3.0 x 3.0 x 0.8 cm in greatest dimensions. Gross photographs are taken. (CAA; 05/19/2020) QAC/QAC 05/19/2020 1236 Local . 02 Pathologist provided ICD-10: M17.11 . 02 CPT . 959281, 521300 Specimen Comment: A courtesy copy of this report has been sent to [phone] Specimen Comment: Report sent to / Performed at: [address], [place] [id number] MD Kamron Garcia MD Phone: [phone] Performed at: [address] [id number] MD Seamus Faust MD Phone: [phone]
[2020-05-24] MEDS ORDERED: FINASTERIDE 1 MG PO SCH (09:00)
== END 2020-05-20 17:40 | disposition home or self-care (01) ==
LOC: SURG 06:08 → 4 SOUTHEST 09:53
PROVIDERS: ADMIT Orthopaedic Surgery; ATTEND Orthopaedic Surgery
DX: T84.092A Other mechanical complication of internal right knee prosthesis, initial encounter (principal); T84.84XA Pain due to internal orthopedic prosthetic devices, implants and grafts, initial encounter; M25.561 Pain in right knee; G89.29 Other chronic pain; M19.90 Unspecified osteoarthritis, unspecified site; M65.9 Synovitis and tenosynovitis, unspecified; Z96.651 Presence of right artificial knee joint; Y83.1 Surgical operation with implant of artificial internal device as the cause of abnormal reaction of the patient, or of later complication, without mention of misadventure at the time of the procedure
CPT/HCPCS: 27486; 36415; 73560; 85014; 85018; 86850; 86900; 86901; 88304; 88311; 96365; 96366; 96375; 97116; 97150; 97162; 97166; 97530; 97535; A4213; A4930; A6258; A6450; A6550; C1713; C1776; G0378; G0379; J0171; J0690; J1100; J1170; J1885; J2270; J2405; J2704; J2795; J3010; J3260; J3370; J7030

== ENCOUNTER 2020-08-16 06:15 | Emergency (ER) | payer OTHER ==
[~2020-08-16] VITALS: Ht 180.3 cm; Wt 106.8 kg
[~2020-08-16 06:15] MED LIST changes: -ACETAMINOPHEN 500 MG TABLET PO PRN; +ASPI325T11 PO; -CELECOXIB 100 MG CAPSULE. PO PRN; -GABAPENTIN 300 MG CAPSULE. PO PRN; +HYDR-2769 PO; +IBUP-1815 PO; -IBUP100O25 PO; -IV RINGERS,LACTATED 1000ML 1,000 ML IV SCH; -LIDOCAINE 2% PF 5 ML VIAL. ONE; -PROCHLORPERAZINE 10 MG/2 ML VIAL. IVP PRN; -PROPOFOL 10 MG/ML (20ML) VIAL. IV ONE; -TRANEXAMIC ACID 1,000 MG in IV NS 50ML -- 1ST BAG INJ ONE; -TV=100ml MORPHINE 5 MG, KETOROLAC 30 MG, ROPIVacaine 0.5% PF 60 ML, EPINEPH... INT ART ONE; -fentaNYL PF VIAL 100 MCG/2 ML VIAL IVP PRN
--- NOTE | 2020-08-16 07:02 | ED.ADGEN ---
Past Medical History Past Medical History: Other Additional Past Medical Histor: hyperlipidemia Past Surgical History: Hip Replacement, Knee Replacement, Other Additional Past Surgical Histo: hernia repair x2, several back surgeries, RIGHT KNEE REVISION Smoking Status: Former Smoker Alcohol Use: Occasionally Drug Use: None General Adult EDM: Chief Complaint: LOWER EXT PAIN HPI: HPI: Patient is a 69 year old male presenting with right knee pain, patient states the pain started 3 days ago. Has been getting worse. Feels like pain is in his right knee joint. Patient is status post revision of right total knee arthroplasty about 3 months ago. Patient states he had to have revision because of a misplaced piece that caused a bone spur. Patient denies any fevers, night sweats, chills or other systemic complaints. Denies any injury. Patient states he frequently has leg cramps, but had leg cramps just prior to the pain starting. States that sometimes radiates to his anterior and medial thigh. Denies any lower extremity edema. Takes an aspirin daily since the pain started but denies any other anticoagulant use. Has been taking his prescribed pain medication condition without improvement. Review of Systems: Review of Systems: All other systems within normal limits except for as noted in the HPI Current Medications: Current Medications Medications (Trade) Dose Ordered Sig/Joshua Start Time Stop Time Status Last Admin Dose Admin Fentanyl Citrate (Fentanyl 2ml Vial) 75 mcg 1X ONCE 08/16/20 07:30 08/16/20 07:31 DC 08/16/20 07:34 75 MCG Allergies: Allergies: Allergies Coded Allergies Type Severity Reaction Last Updated Verified niacin Allergy Intermediate 08/16/20 Yes Physical Exam: PE: Constitutional: Well developed, well nourished, no acute distress, non-toxic appearance. [] HENT: Normocephalic, atraumatic, bilateral external ears normal, nose normal. [] Eyes: PERRLA, conjunctiva normal, no discharge. [] Neck: No rigidity, supple, no stridor. [] Cardiovascular: Regular rate and rhythm, brisk cap refill [] Lungs & Thorax: Non labored symmetric respirations, no tachypnea or respiratory distress [] Abdomen: Soft, nondistended. Skin: Warm, dry, no erythema, no rash. [] Back: Unremarkable Extremities: No deformities, range of motion grossly intact, no lower extremity edema. Right knee exam:. Well-healed surgical scar anterior knee. Trace joint effusion, range of motion intact, no point tenderness. No laxity. No erythema or warmth [] Neurologic: Alert and oriented X 3, no focal deficits noted. [] Psychologic: Affect normal, judgement normal, mood normal. [] Current Patient Data: Labs: Laboratory Tests Test 08/16/20 07:10 White Blood Count 7.9 x10^3/uL (4.0-11.0) Red Blood Count 4.56 x10^6/uL (4.30-5.70) Hemoglobin 14.5 g/dL (13.0-17.5) Hematocrit 41.4 % (39.0-53.0) Mean Corpuscular Volume 91 fL (79-100) Mean Corpuscular Hemoglobin 32 pg (25-35) Mean Corpuscular Hemoglobin Concent 35 g/dL (31-37) Red Cell Distribution Width 13.6 % (11.5-14.5) Platelet Count 205 x10^3/uL (140-400) Neutrophils (%) (Auto) 73 % (31-73) Lymphocytes (%) (Auto) 19 % (24-48) L Monocytes (%) (Auto) 6 % (0-9) Eosinophils (%) (Auto) 2 % (0-3) Basophils (%) (Auto) 1 % (0-3) Neutrophils # (Auto) 5.7 x10^3/uL (1.8-7.7) Lymphocytes # (Auto) 1.5 x10^3/uL (1.0-4.8) Monocytes # (Auto) 0.4 x10^3/uL (0.0-1.1) Eosinophils # (Auto) 0.1 x10^3/uL (0.0-0.7) Basophils # (Auto) 0.0 x10^3/uL (0.0-0.2) Sodium Level 139 mmol/L (136-145) Potassium Level 3.9 mmol/L (3.5-5.1) Chloride Level 105 mmol/L (98-107) Carbon Dioxide Level 23 mmol/L (21-32) Anion Gap 11 (6-14) Blood Urea Nitrogen 16 mg/dL (8-26) Creatinine 1.0 mg/dL (0.7-1.3) Estimated GFR (Cockcroft-Gault) 74.1 BUN/Creatinine Ratio 16 (6-20) Glucose Level 111 mg/dL (70-99) H Calcium Level 8.7 mg/dL (8.5-10.1) Total Bilirubin 0.3 mg/dL (0.2-1.0) Aspartate Amino Transferase (AST) 25 U/L (15-37) Alanine Aminotransferase (ALT) 30 U/L (16-63) Alkaline Phosphatase 85 U/L (46-116) C-Reactive Protein, Quantitative 6.1 mg/L (0-3.3) H Total Protein 6.9 g/dL (6.4-8.2) Albumin 4.2 g/dL (3.4-5.0) Albumin/Globulin Ratio 1.6 (1.0-1.7) Laboratory Tests 08/16/20 07:10 Laboratory Tests 08/16/20 07:10 Vital Signs: Vital Signs Date Time Temp Pulse Resp B/P (MAP) Pulse Ox O2 Delivery O2 Flow Rate FiO2 08/16/20 08:04 18 94 Room Air 08/16/20 07:30 68 121/59 (79) 08/16/20 06:20 98.2 98.2 EKG: EKG: [] Heart Score: C/O Chest Pain: No Risk Factors: Risk Factors: DM, Current or recent (<one month) smoker, HTN, HLP, family history of CAD, obesity. Risk Scores: Score 0 - 3: 2.5% MACE over next 6 weeks - Discharge Home Score 4 - 6: 20.3% MACE over next 6 weeks - Admit for Clinical Observation Score 7 - 10: 72.7% MACE over next 6 weeks - Early Invasive Strategies Radiology/Procedures: Radiology/Procedures: [facility] [address] [place] [address] IMAGING REPORT Signed PATIENT: FAYE VALIENTE ACCOUNT: [id number] : 1950 LOCATION: ER AGE: 69 SEX: M EXAM STATUS: REG ER ORD. PHYSICIAN: INNA BAUM MD REASON: pain, post op, r/o dvt PROCEDURE: VENOUS LOWER EXTREMITY RIGHT INDICATION: Reason: pain, post op, r/o dvt / Spl. Instructions: / History: COMPARISON: None. TECHNIQUE: Grayscale, color and doppler ultrasound images were obtained of the right lower extremity venous vasculature. RIGHT: No thrombus identified in the common femoral vein, femoral vein, popliteal vein or visualized calf veins. IMPRESSION: * No thrombus identified in deep venous system of right lower extremity. Electronically signed by: Lavinia Mandujano MD (08/16/2020 8:24 AM) [id number] DICTATED and SIGNED BY: LAVINIA MANDUJANO MD DATE: 08/16/20 [id number] 0 [][facility] [address] [place] [address] IMAGING REPORT Signed PATIENT: FAYE VALIENTE ACCOUNT: [id number] : 1950 LOCATION: ER AGE: 69 SEX: M EXAM STATUS: REG ER ORD. PHYSICIAN: INNA BAUM MD REASON: post op pain/NO INJURY PAIN AND SWELLING PROCEDURE: KNEE RIGHT 4V Examination: 4 views of the right knee HISTORY: History of postop knee pain COMPARISON: 05/24/2020 Findings/ impression: Total knee arthroplasty changes in normal alignment. There is no acute fracture or dislocation identified. Probable small knee joint effusion. Electronically signed by: Mp Cottrell MD (08/16/2020 7:10 AM) [id number] DICTATED and SIGNED BY: MP COTTRELL MD DATE: 08/16/20 [id number] 0 Course & Med Decision Making: Course & Med Decision Making Pertinent Labs and Imaging studies reviewed. (See chart for details) [] Dragon Disclaimer: Dragon Disclaimer: This electronic medical record was generated, in whole or in part, using a voice recognition dictation system. Departure Departure Impression: Primary Impression: Right knee pain Disposition: 01 HOME / SELF CARE / HOMELESS Condition: STABLE Referrals: RAI WU MD Patient Instructions: Knee Pain, [id number] Scripts Oxycodone HCl/Acetaminophen (Oxycodone-Acetaminophn 7.5-325) 1 Each Tablet 1 EACH PO PRN Q6HRS PRN for PAIN for 3 Days, #10 TAB Prov: INNA BAUM MD 08/16/20 INNA BAUM MD Aug 16, 2020 07:02
--- NOTE | 2020-08-16 07:12 | RAD ---
Examination: 4 views of the right knee HISTORY: History of postop knee pain COMPARISON: 05/24/2020 Findings/ impression: Total knee arthroplasty changes in normal alignment. There is no acute fracture or dislocation identi fied. Probable small knee joint effusion. Electronically signed by: Mp Cottrell MD (08/16/2020 7:10 AM) [id number]
[2020-08-16 07:26] LABS: BASO % 1 % (0-3); EOS # 0.1 x10^3/uL (0.0-0.7); EOS % 2 % (0-3); HEMATOCRIT 41.4 % (39.0-53.0); HEMOGLOBIN 14.5 g/dL (13.0-17.5); LYMPH # 1.5 x10^3/uL (1.0-4.8); LYMPH % 19 % (24-48); MEAN CORPUSCULAR HEMOGLOBIN 32 pg (25-35); MEAN CORPUSCULAR HGB CONC 35 g/dL (31-37); MEAN CORPUSCULAR VOLUME 91 fL (79-100); MONO # 0.4 x10^3/uL (0.0-1.1); MONO % 6 % (0-9); NEUT # 5.7 x10^3/uL (1.8-7.7); NEUT % 73 % (31-73); PLATELET COUNT 205 x10^3/uL (140-400); RED BLOOD COUNT 4.56 x10^6/uL (4.30-5.70); RED CELL DISTRIBUTION WIDTH 13.6 % (11.5-14.5); WHITE BLOOD COUNT 7.9 x10^3/uL (4.0-11.0)
[2020-08-16] MEDS ORDERED: fentaNYL PF VIAL 100 MCG/2 ML VIAL IVP ONE (07:30)
[2020-08-16 07:34] LABS: CALCIUM 8.7 mg/dL (8.5-10.1); GFR 74.1; POTASSIUM 3.9 mmol/L (3.5-5.1)
[2020-08-16 07:40] LABS: ALBUMIN 4.2 g/dL (3.4-5.0); ALBUMIN/GLOBULIN RATIO 1.6 (1.0-1.7); TOTAL BILIRUBIN 0.3 mg/dL (0.2-1.0); TOTAL PROTEIN 6.9 g/dL (6.4-8.2)
[2020-08-16 07:50] LABS: C-REACTIVE PROTEIN 6.1 mg/L (0-3.3)
--- NOTE | 2020-08-16 08:26 | RAD ---
INDICATION: Reason: pain, post op, r/o dvt / Spl. Instructions: / History: COMPARISON: None. TECHNIQUE: Grayscale, color and doppler ultrasound images were obtained of the right lower extremity venous vasculature. RIGHT: No thrombus identified in the common femoral vein, femoral vein, popliteal vein or visualized calf ve ins. IMPRESSION: * No thrombus identified in deep venous system of right lower extremity. Electronically signed by: Darwin Rosado MD (08/16/2020 8:24 AM) [id number]
[2020-08-16 08:27] VITALS: BP 149/74
[2020-08-16] MEDS ORDERED: OXYC1TAB17 PO (08:41)
[2020-08-16] MEDS ORDERED: MORPHINE SULFATE 4 MG/ML VIAL. IV ONE (08:45)
== END 2020-08-16 09:15 | disposition home or self-care (01) ==
LOC: ER 06:15
DX: M25.561 Pain in right knee (principal); R25.2 Cramp and spasm; E78.5 Hyperlipidemia, unspecified; Z88.1 Allergy status to other antibiotic agents
CPT/HCPCS: 36415; 73564; 80053; 85025; 85651; 86140; 93971; 96374; 96375; 99285; J2270; J3010

== ENCOUNTER → 2020-10-14 | Outpatient (CLI) | payer OTHER ==
[~2020-10-14] MED LIST changes: +IBUP-1739 PO; -IBUP-1815 PO; +OXYC1TAB17 PO
[2020-10-14 08:30] LABS: BILIRUBIN,URINE NEGATIVE (NEG); CLARITY,URINE CLEAR; COLOR,URINE YELLOW; NITRITE,URINE NEGATIVE (NEG); PROTEIN,URINE NEGATIVE (NEG-TRACE); UROBILINOGEN,URINE 0.2 mg/dL (0.2 mg/dL)
[2020-10-14 08:51] LABS: ALBUMIN 3.9 g/dL (3.4-5.0); ALBUMIN/GLOBULIN RATIO 1.2 (1.0-1.7); CALCIUM 8.8 mg/dL (8.5-10.1); CREATININE 0.9 mg/dL (0.7-1.3); GFR 83.4; TOTAL BILIRUBIN 0.6 mg/dL (0.2-1.0); TOTAL PROTEIN 7.2 g/dL (6.4-8.2)
[2020-10-14 08:52] LABS: BACTERIA,URINE 0 /HPF (0-FEW); WBC,URINE OCC /HPF (0-4)
[2020-10-14 21:08] LABS: CREAT RD UR 113.8 mg/dL (Not Estab.)
[2020-10-15 00:08] LABS: HEMOGLOBIN A1C 5.8 % (4.8-5.6)
[2020-10-15 09:03] LABS: FECAL OB PT NEGATIVE (NEG)
== END ==
LOC: LAB 07:17
PROVIDERS: ATTEND Family Medicine
DX: Z12.11 Encounter for screening for malignant neoplasm of colon (principal); I10 Essential (primary) hypertension; E78.5 Hyperlipidemia, unspecified; R97.20 Elevated prostate specific antigen [PSA]; R73.01 Impaired fasting glucose
CPT/HCPCS: 80053; 80061; 81001; 82043; 82274; 82570; 83036; G0103